=== PATIENT | female | born 1945 | race African-American/Black ===

== ENCOUNTER 2017-09-06 17:44 | Inpatient (IN) | payer MEDICARE, BC ==
[~2017-09-06] VITALS: Ht 162.6 cm; Wt 64.9 kg
[2017-09-06 17:15] VITALS: BP 119/72
[~2017-09-06 17:44] MED LIST: INSASP SUBCUT; LEVVL SQ; METF10004 PO
[2017-09-06 18:00] VITALS: BP 125/60
[2017-09-06] MEDS ORDERED: ONDANSETRON HCL 4MG/2ML VIAL IV PRN (18:30)
[2017-09-06] MEDS ORDERED: NON FORMULARY PATIENT HOME MED EA XX SCH ×3 (18:30→19:45)
[2017-09-06] MEDS ORDERED: DEXTROSE 50% WATER 50ML SYRINGE IV PRN (18:30)
[2017-09-06] MEDS: DOCUSATE SODIUM 100MG CAPSULE PO SCH (18:59)
[2017-09-06] MEDS ORDERED: MORPHINE SULFATE 4 MG/ML CPJ (NOT FOR IM USE) IV PRN (19:01)
[2017-09-06 20:00] VITALS: BP 131/63
[2017-09-06] MEDS: INSULIN LISPRO 100 UNITS/ML SUBCUT SCH (21:00)
[2017-09-06] MEDS: NOVOLOG SUBCUT SCH (21:07)
[2017-09-06] MEDS: LEVEMIR SUBCUT SCH (21:08)
[2017-09-06] MEDS: BLOOD SUGAR DIAGNOSTIC STRIP TEST SCH (21:09)
[2017-09-06] MEDS: ENOXAPARIN 40MG/0.4ML SYR SUBCUT SCH (21:09)
[2017-09-07] MEDS: BLOOD SUGAR DIAGNOSTIC STRIP TEST SCH ×4 (07:01→20:58)
[2017-09-07 08:00] VITALS: BP 142/65
[2017-09-07] MEDS: INSULIN LISPRO 100 UNITS/ML SUBCUT SCH ×2 (08:06→21:00)
[2017-09-07] MEDS: NOVOLOG SUBCUT SCH ×2 (08:07→21:00)
[2017-09-07] MEDS ORDERED: NON FORMULARY PATIENT HOME MED EA PO SCH (09:00)
[2017-09-07] MEDS ORDERED: METFORMIN HCL 500MG TABLET PO SCH (09:00)
[2017-09-07] MEDS: DOCUSATE SODIUM 100MG CAPSULE PO SCH ×2 (10:59→18:09)
[2017-09-07] MEDS: METFORMIN 1000 MG PO SCH ×2 (11:01→18:10)
[2017-09-07] MEDS: TRAMADOL 50MG TABLET PO PRN (11:10)
[2017-09-07 13:40] LABS: CHLORIDE 102 mEq/L (98-107)
[2017-09-07] MEDS ORDERED: BISACODYL 5MG TABLET PO PRN (14:15)
[2017-09-07] MEDS ORDERED: NA PHOS,M-B/NA PHOS,DI-BA ENEMA 118ML PR PRN (14:15)
[2017-09-07 20:00] VITALS: BP 118/48
[2017-09-07 20:31] LABS: BASOPHILS % 0.2 % (0.0-2.0); EOSINOPHILS % 0.8 % (0.0-5.0); HEMATOCRIT. 30.4 % (36.0-48.0); HEMOGLOBIN. 10.7 g/dL (12.0-16.0); LYMPHOCYTES % 14.2 % (20.0-50.0); MEAN CORPUSCULAR HEMOGLOBIN 29.6 pg (28.0-32.0); MEAN CORPUSCULAR VOLUME 84.2 fL (81.0-99.0); MEAN PLATELET VOLUME 8.6 fl (7.4-10.4); MONOCYTES % 8.6 % (2.0-8.0); NEUTROPHILS % 76.2 % (40.0-76.0); PLATELET 267 x1000/uL (130-400); RED BLOOD CELL COUNT 3.61 mill/uL (4.2-5.4); RED CELL DISTRIBUTION WIDTH 14.8 % (11.6-14.6)
[2017-09-07] MEDS: LEVEMIR SUBCUT SCH (20:58)
[2017-09-07] MEDS ORDERED: LACTULOSE 20G/30ML UDC PO PRN (21:00)
[2017-09-07] MEDS: TRIBENZOR PO SCH (21:00)
[2017-09-07] MEDS: ENOXAPARIN 40MG/0.4ML SYR SUBCUT SCH (23:21)
[2017-09-08] MEDS: BLOOD SUGAR DIAGNOSTIC STRIP TEST SCH ×3 (06:08→20:32)
[2017-09-08 08:00] VITALS: BP 125/50
[2017-09-08] MEDS: DOCUSATE SODIUM 100MG CAPSULE PO SCH ×2 (08:21→17:29)
[2017-09-08] MEDS: NOVOLOG SUBCUT SCH ×4 (08:22→21:00)
[2017-09-08] MEDS: METFORMIN 1000 MG PO SCH ×2 (08:23→17:30)
[2017-09-08] MEDS: TRIBENZOR PO SCH (08:24)
[2017-09-08 20:00] VITALS: BP 139/64
[2017-09-08] MEDS: ENOXAPARIN 40MG/0.4ML SYR SUBCUT SCH (20:23)
[2017-09-08] MEDS: INSULIN LISPRO 100 UNITS/ML SUBCUT SCH (21:00)
[2017-09-08] MEDS: LEVEMIR SUBCUT SCH (22:22)
[2017-09-08] MEDS: TRAMADOL 50MG TABLET PO PRN (22:44)
[2017-09-09] MEDS: BLOOD SUGAR DIAGNOSTIC STRIP TEST SCH ×4 (06:15→21:11)
[2017-09-09 07:29] VITALS: BP 133/53
[2017-09-09] MEDS: DOCUSATE SODIUM 100MG CAPSULE PO SCH ×2 (08:07→16:11)
[2017-09-09] MEDS: METFORMIN 1000 MG PO SCH ×2 (08:07→16:12)
[2017-09-09] MEDS: TRIBENZOR PO SCH (08:08)
[2017-09-09] MEDS: INSULIN LISPRO 100 UNITS/ML SUBCUT SCH ×4 (08:10→21:00)
[2017-09-09] MEDS: NOVOLOG SUBCUT SCH ×4 (08:10→21:00)
[2017-09-09] MEDS ORDERED: HYDROCODONE/ACETAMINOPHEN 5/325MG TABLET PO PRN (11:00)
[2017-09-09 20:00] VITALS: BP 115/44
[2017-09-09] MEDS: LEVEMIR SUBCUT SCH (21:06)
[2017-09-09] MEDS: ENOXAPARIN 40MG/0.4ML SYR SUBCUT SCH (21:11)
[2017-09-10] MEDS: BLOOD SUGAR DIAGNOSTIC STRIP TEST SCH ×4 (05:57→21:25)
[2017-09-10 07:55] LABS: BASOPHILS % 0.6 % (0.0-2.0); EOSINOPHILS % 1.4 % (0.0-5.0); HEMATOCRIT. 30.9 % (36.0-48.0); HEMOGLOBIN. 10.7 g/dL (12.0-16.0); LYMPHOCYTES % 20.9 % (20.0-50.0); MEAN CORPUSCULAR HEMOGLOBIN 29.2 pg (28.0-32.0); MEAN CORPUSCULAR VOLUME 84.5 fL (81.0-99.0); MEAN PLATELET VOLUME 8.6 fl (7.4-10.4); MONOCYTES % 11.3 % (2.0-8.0); NEUTROPHILS % 65.8 % (40.0-76.0); PLATELET 326 x1000/uL (130-400); RED BLOOD CELL COUNT 3.66 mill/uL (4.2-5.4); RED CELL DISTRIBUTION WIDTH 14.7 % (11.6-14.6)
[2017-09-10 08:00] VITALS: BP 138/67
[2017-09-10] MEDS: DOCUSATE SODIUM 100MG CAPSULE PO SCH ×2 (08:06→17:00)
[2017-09-10] MEDS: METFORMIN 1000 MG PO SCH ×2 (08:08→17:00)
[2017-09-10] MEDS: TRIBENZOR PO SCH (08:08)
[2017-09-10] MEDS: INSULIN LISPRO 100 UNITS/ML SUBCUT SCH ×4 (08:09→21:00)
[2017-09-10] MEDS: NOVOLOG SUBCUT SCH ×4 (08:10→21:31)
[2017-09-10] MEDS ORDERED: ACETAMINOPHEN 325MG TABLET PO PRN (10:15)
[2017-09-10] MEDS ORDERED: ONDANSETRON 4MG ODT PO PRN (10:15)
[2017-09-10] MEDS ORDERED: HYDROCODONE/ACETAMINOPHEN 5/325MG TABLET PO PRN (10:15)
[2017-09-10] MEDS ORDERED: ACETAMINOPHEN WITH CODEINE 300/30MG TABLET PO PRN (13:00)
[2017-09-10 20:00] VITALS: BP 126/52
[2017-09-10] MEDS: ENOXAPARIN 40MG/0.4ML SYR SUBCUT SCH (20:22)
[2017-09-10] MEDS: LEVEMIR SUBCUT SCH (21:32)
[2017-09-11] MEDS: BLOOD SUGAR DIAGNOSTIC STRIP TEST SCH ×4 (06:22→21:24)
[2017-09-11] MEDS: INSULIN LISPRO 100 UNITS/ML SUBCUT SCH ×6 (06:40→21:00)
[2017-09-11] MEDS: NOVOLOG SUBCUT SCH ×4 (06:42→21:24)
[2017-09-11 08:00] VITALS: BP 136/57
[2017-09-11] MEDS: ONDANSETRON 4MG ODT PO PRN (08:24)
[2017-09-11] MEDS: METFORMIN 1000 MG PO SCH ×2 (08:27→17:47)
[2017-09-11] MEDS: TRIBENZOR PO SCH (08:27)
[2017-09-11] MEDS: DOCUSATE SODIUM 100MG CAPSULE PO SCH ×2 (08:30→17:00)
[2017-09-11] MEDS ORDERED: ZOLPIDEM TARTRATE 5MG TABLET PO PRN (14:15)
[2017-09-11] MEDS ORDERED: MORPHINE SULFATE 4 MG/ML CPJ (NOT FOR IM USE) IV PRN (15:01)
[2017-09-11 20:00] VITALS: BP 140/62
[2017-09-11] MEDS: ENOXAPARIN 40MG/0.4ML SYR SUBCUT SCH (21:24)
[2017-09-11] MEDS: LEVEMIR SUBCUT SCH (21:24)
[2017-09-12] MEDS: BLOOD SUGAR DIAGNOSTIC STRIP TEST SCH ×4 (06:35→21:40)
[2017-09-12 08:00] VITALS: BP 120/53
[2017-09-12] MEDS: DOCUSATE SODIUM 100MG CAPSULE PO SCH ×2 (08:03→17:00)
[2017-09-12] MEDS: METFORMIN 1000 MG PO SCH ×2 (08:10→17:55)
[2017-09-12] MEDS: TRIBENZOR PO SCH (08:10)
[2017-09-12] MEDS: NOVOLOG SUBCUT SCH ×5 (08:16→18:39)
[2017-09-12] MEDS: INSULIN LISPRO 100 UNITS/ML SUBCUT SCH ×2 (08:16→08:18)
[2017-09-12] MEDS ORDERED: INSULIN LISPRO 100 UNITS/ML SUBCUT SCH (08:45)
[2017-09-12] MEDS ORDERED: NON FORMULARY PATIENT HOME MED EA XX SCH (08:45)
[2017-09-12] MEDS: ONDANSETRON 4MG ODT PO PRN (09:52)
[2017-09-12] MEDS ORDERED: NOVOLOG 100 UNIT/ML SUBCUT NR (18:15)
[2017-09-12 20:00] VITALS: BP 129/42
[2017-09-12] MEDS: ENOXAPARIN 40MG/0.4ML SYR SUBCUT SCH (21:42)
[2017-09-12] MEDS: LEVEMIR SUBCUT SCH (21:47)
[2017-09-13] MEDS: BLOOD SUGAR DIAGNOSTIC STRIP TEST SCH ×4 (06:31→21:00)
[2017-09-13] MEDS: NOVOLOG 100 UNIT/ML SUBCUT SCH ×3 (06:56→17:35)
[2017-09-13 08:00] VITALS: BP 118/50
[2017-09-13] MEDS: DOCUSATE SODIUM 100MG CAPSULE PO SCH ×2 (08:22→17:00)
[2017-09-13] MEDS: METFORMIN 1000 MG PO SCH ×2 (08:23→17:35)
[2017-09-13] MEDS: TRIBENZOR PO SCH (08:23)
[2017-09-13] MEDS: NOVOLOG SUBCUT SCH ×5 (08:26→21:00)
[2017-09-13 20:00] VITALS: BP 101/31
[2017-09-13] MEDS: ENOXAPARIN 40MG/0.4ML SYR SUBCUT SCH (22:08)
[2017-09-13] MEDS: LEVEMIR SUBCUT SCH (22:09)
[2017-09-14] MEDS: BLOOD SUGAR DIAGNOSTIC STRIP TEST SCH ×4 (06:50→22:16)
[2017-09-14] MEDS: NOVOLOG SUBCUT SCH ×4 (07:09→22:16)
[2017-09-14 08:00] VITALS: BP 123/56
[2017-09-14] MEDS: DOCUSATE SODIUM 100MG CAPSULE PO SCH ×2 (09:00→17:00)
[2017-09-14] MEDS: TRIBENZOR PO SCH ×2 (09:00→09:33)
[2017-09-14] MEDS: METFORMIN 1000 MG PO SCH ×2 (09:32→17:00)
[2017-09-14] MEDS: NOVOLOG 100 UNIT/ML SUBCUT SCH ×4 (09:35→20:05)
[2017-09-14 15:00] VITALS: BP 106/53
[2017-09-14] MEDS ORDERED: ACETAMINOPHEN WITH CODEINE 300/30MG TABLET PO PRN (18:45)
[2017-09-14] MEDS ORDERED: HYDROCODONE/ACETAMINOPHEN 5/325MG TABLET PO PRN (18:45)
[2017-09-14 20:00] VITALS: BP 133/49
[2017-09-14] MEDS: ENOXAPARIN 40MG/0.4ML SYR SUBCUT SCH (20:08)
[2017-09-14] MEDS: LEVEMIR SUBCUT SCH (22:16)
[2017-09-15] MEDS: BLOOD SUGAR DIAGNOSTIC STRIP TEST SCH ×4 (05:53→20:50)
[2017-09-15] MEDS: NOVOLOG SUBCUT SCH ×4 (05:53→20:50)
[2017-09-15 08:00] VITALS: BP 125/56
[2017-09-15] MEDS: METFORMIN 1000 MG PO SCH ×2 (08:26→17:00)
[2017-09-15] MEDS: TRIBENZOR PO SCH (08:27)
[2017-09-15] MEDS: NOVOLOG 100 UNIT/ML SUBCUT SCH ×3 (08:30→17:47)
[2017-09-15] MEDS: DOCUSATE SODIUM 100MG CAPSULE PO SCH ×2 (08:38→17:00)
[2017-09-15 20:00] VITALS: BP 117/50
[2017-09-15] MEDS: ENOXAPARIN 40MG/0.4ML SYR SUBCUT SCH (21:05)
[2017-09-15] MEDS: LEVEMIR SUBCUT SCH (22:15)
[2017-09-16] MEDS: BLOOD SUGAR DIAGNOSTIC STRIP TEST SCH ×4 (05:38→20:16)
[2017-09-16] MEDS: NOVOLOG 100 UNIT/ML SUBCUT SCH ×4 (05:44→17:00)
[2017-09-16] MEDS: NOVOLOG SUBCUT SCH ×5 (07:15→22:51)
[2017-09-16 07:30] LABS: BASOPHILS % 0.5 % (0.0-2.0); EOSINOPHILS % 3.8 % (0.0-5.0); MEAN CORPUSCULAR HEMOGLOBIN 29.7 pg (28.0-32.0); MEAN CORPUSCULAR VOLUME 84.5 fL (81.0-99.0); MEAN PLATELET VOLUME 8.4 fl (7.4-10.4); MONOCYTES % 8.9 % (2.0-8.0); NEUTROPHILS % 65.8 % (40.0-76.0); PLATELET 496 x1000/uL (130-400); RED BLOOD CELL COUNT 4.03 mill/uL (4.2-5.4); RED CELL DISTRIBUTION WIDTH 14.9 % (11.6-14.6)
[2017-09-16 08:00] VITALS: BP 123/58
[2017-09-16] MEDS: METFORMIN 1000 MG PO SCH ×3 (08:57→16:44)
[2017-09-16] MEDS: TRIBENZOR PO SCH (09:00)
[2017-09-16] MEDS: DOCUSATE SODIUM 100MG CAPSULE PO SCH ×2 (09:00→16:37)
[2017-09-16] MEDS: ENOXAPARIN 40MG/0.4ML SYR SUBCUT SCH (20:23)
[2017-09-16 20:30] VITALS: BP 122/45
[2017-09-16] MEDS ORDERED: INSULIN ASPART SQ ONE (22:15)
[2017-09-16] MEDS ORDERED: NOVOLOG SUBCUT NR (22:44)
[2017-09-16] MEDS: LEVEMIR SUBCUT SCH (22:59)
[2017-09-17] MEDS: BLOOD SUGAR DIAGNOSTIC STRIP TEST SCH (06:13)
[2017-09-17 08:00] VITALS: BP 132/49
[2017-09-17] MEDS: METFORMIN 1000 MG PO SCH (08:22)
[2017-09-17] MEDS: TRIBENZOR PO SCH (08:24)
[2017-09-17] MEDS: NOVOLOG 100 UNIT/ML SUBCUT SCH (08:26)
[2017-09-17 12:05] VITALS: BP 132/49
== END 2017-09-17 13:21 | disposition home or self-care (01) | DRG 563 ==
PROVIDERS: ADMIT Psychiatry & Neurology Neurology; ATTEND Hospitalist
PROC: 0HBRXZZ Excision of Toe Nail, External Approach (ICD-10-PCS; principal; 2017-09-11)
PROC: 0HBRXZZ Excision of Toe Nail, External Approach (ICD-10-PCS; 2017-09-11)
PROC: 0HBRXZZ Excision of Toe Nail, External Approach (ICD-10-PCS; 2017-09-11)
PROC: 0HBRXZZ Excision of Toe Nail, External Approach (ICD-10-PCS; 2017-09-11)
PROC: 0HBRXZZ Excision of Toe Nail, External Approach (ICD-10-PCS; 2017-09-11)
PROC: 0HBRXZZ Excision of Toe Nail, External Approach (ICD-10-PCS; 2017-09-11)
PROC: 0HBRXZZ Excision of Toe Nail, External Approach (ICD-10-PCS; 2017-09-11)
PROC: 0HBRXZZ Excision of Toe Nail, External Approach (ICD-10-PCS; 2017-09-11)
PROC: 0HBRXZZ Excision of Toe Nail, External Approach (ICD-10-PCS; 2017-09-11)
PROC: 0HBRXZZ Excision of Toe Nail, External Approach (ICD-10-PCS; 2017-09-11)
DX: S82.842A Displaced bimalleolar fracture of left lower leg, initial encounter for closed fracture (principal); E11.65 Type 2 diabetes mellitus with hyperglycemia; D64.9 Anemia, unspecified; H35.30 Unspecified macular degeneration; I10 Essential (primary) hypertension; K59.00 Constipation, unspecified; L60.0 Ingrowing nail; F32.9 Major depressive disorder, single episode, unspecified; Z60.2 Problems related to living alone; L60.3 Nail dystrophy; W18.30XA Fall on same level, unspecified, initial encounter; Z82.49 Family history of ischemic heart disease and other diseases of the circulatory system; Z83.3 Family history of diabetes mellitus; Z88.8 Allergy status to other drugs, medicaments and biological substances; Z79.4 Long term (current) use of insulin; Z79.899 Other long term (current) drug therapy; W18.39XA Other fall on same level, initial encounter; Y93.89 Activity, other specified; Y92.89 Other specified places as the place of occurrence of the external cause; Y99.8 Other external cause status
CPT/HCPCS: 36415; 80048; 80053; 82947; 82962; 85025; 97110; 97116; 97162; 97167; 97530; 97535; J1650; J1815; Q0162